=== PATIENT | female | born 1990 | race Caucasian/White ===

== ENCOUNTER 2022-10-13 06:24 | Day surgery (SDC) | payer SELFPAY ==
[2022-10-13] MEDS ORDERED: BACITRACIN ZINC 15 GM TUBE TOPICAL OINTMENT ONE (07:23)
[2022-10-13] MEDS ORDERED: LIDOCAINE 1%-EPI 1:100,000 30 ML MDV IJ ONE (07:23)
[2022-10-13] MEDS ORDERED: BUPIVACAINE HCL/PF 2.5 MG/ML - 30 ML VIAL IJ ONE (07:23)
[2022-10-13] MEDS ORDERED: LIDOCAINE HCL/PF 2% SDV 5ML VIAL ONE (07:53)
[2022-10-13] MEDS ORDERED: PROPOFOL 20 ML ONE (07:54)
[2022-10-13] MEDS ORDERED: MIDAZOLAM HCL 2 MG/2 ML SINGLE DOSE VIAL ONE (07:54)
[2022-10-13] MEDS ORDERED: DEXAMETHASONE SOD PHOSPHATE 4 MG/1 ML VIAL ONE (09:52)
[2022-10-13] MEDS ORDERED: ONDANSETRON 4 MG/2 ML VIAL ONE (09:52)
[2022-10-13] MEDS ORDERED: ceFAZolin SODIUM 1 GM VIAL ONE (10:03)
[2022-10-13] MEDS ORDERED: oxyCODONE HCL 5 MG TABLET PO PRN (12:02)
[2022-10-13] MEDS ORDERED: ONDANSETRON 4 MG/2 ML VIAL IVPUSH PRN (12:02)
[2022-10-13] MEDS ORDERED: ACETAMINOPHEN 1000 MG/100 ML BAG IVPB PRN (12:03)
[2022-10-13] MEDS ORDERED: LACTATED RINGERS SOLUTION 1,000 ML IV SCH (12:15)
== END 2022-10-13 13:30 | disposition home or self-care (01) ==
LOC: FASU 06:24
PROVIDERS: ATTEND Surgery
CPT/HCPCS: 81025; 88304-TC; 94760